=== PATIENT | female | born 1995 | race Two or more races ===

== ENCOUNTER 2019-09-08 12:11 | Outpatient (CLI) | payer OTHER ==
[~2019-09-08 12:11] MED LIST: PRENATAL CAPLE1 EACH PO
== END 2019-09-08 13:11 | disposition home or self-care (01) ==
LOC: NST 12:11
DX: Z34.83 Encounter for supervision of other normal pregnancy, third trimester (principal)

== ENCOUNTER 2019-10-21 09:48 | Inpatient (IN) | payer OTHER ==
[~2019-10-21] VITALS: Ht 162.6 cm; Wt 67.1 kg
== END 2019-11-14 15:10 | disposition home or self-care (01) | DRG 807 ==
LOC: OB/GYN 11-10 11:15 → LDR 11-12 06:27 → OB/GYN 11-12 13:27
PROVIDERS: ADMIT Obstetrics & Gynecology
PROC: 10E0XZZ Delivery of Products of Conception, External Approach (ICD-10-PCS; principal; 2019-11-12)
PROC: 0UQMXZZ Repair Vulva, External Approach (ICD-10-PCS; 2019-11-12)
PROC: 4A1HXCZ Monitoring of Products of Conception, Cardiac Rate, External Approach (ICD-10-PCS; 2019-11-12)
DX: O71.82 Other specified trauma to perineum and vulva (principal); Z37.0 Single live birth; Z3A.39 39 weeks gestation of pregnancy

== ENCOUNTER 2019-11-04 11:54 | Outpatient (CLI) | payer OTHER | END 2019-11-04 12:35 | disposition home or self-care (01) | LOC: NST 11:54 | DX: Z34.83 Encounter for supervision of other normal pregnancy, third trimester (principal) ==

== ENCOUNTER 2019-11-10 10:12 | Outpatient (CLI) | payer OTHER | END 2019-11-10 11:09 | disposition home or self-care (01) | LOC: NST 10:12 | DX: Z34.83 Encounter for supervision of other normal pregnancy, third trimester (principal) ==

== ENCOUNTER → 2020-09-23 08:00 | Outpatient (CLI) | payer OTHER | END | disposition home or self-care (01) | LOC: LAB 08:00 → ADM 08:00 → EDSTATUS 09-29 08:00 → CIR.AMB 09-29 08:00 | PROVIDERS: ATTEND Obstetrics & Gynecology | DX: Z30.2 Encounter for sterilization (principal); Z20.828 Contact with and (suspected) exposure to other viral communicable diseases ==